=== PATIENT | female | born 2005 | race Caucasian/White ===

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

== ENCOUNTER 2023-10-20 18:07 | Emergency (ER) | payer OTHER ==
[~2023-10-20] VITALS: Ht 162.6 cm; Wt 54.4 kg
[~2023-10-20 18:07] MED LIST changes: +NAPROXEN500 MG PO
[2023-10-20 21:35] VITALS: BP 123/74
== END 2023-10-20 21:39 | disposition home or self-care (01) | DRG 605 ==
LOC: ED 18:07
DX: S80.02XA Contusion of left knee, initial encounter (principal); J45.909 Unspecified asthma, uncomplicated; W01.0XXA Fall on same level from slipping, tripping and stumbling without subsequent striking against object, initial encounter; Y92.009 Unspecified place in unspecified non-institutional (private) residence as the place of occurrence of the external cause